=== PATIENT | female | born 1990 | race Caucasian/White ===

== ENCOUNTER 2022-12-14 09:32 | Emergency (ER) | payer MEDICAID ==
[~2022-12-14] VITALS: Ht 162.6 cm; Wt 77.3 kg
[~2022-12-14 09:32] MED LIST: BENADRYL25 M2 PO; MEDROL 4MG DOSPA4 MG PO; MOTRIN 600600 MG/TAB PO; NO HOME MEDICATIONS; PERCOCET 325 MG1 TA2 PO; PRENATAL1 TA7 PO; RAYOS1 MG
[2022-12-14 09:44] VITALS: TEMP 97.4
[2022-12-14] MEDS ORDERED: Promethazine 25 MG in NS 50 ML IV ONE (10:00)
[2022-12-14] MEDS ORDERED: NS 1,000 ML IV ONE (10:00)
[2022-12-14 10:29] LABS: BASO # 0.1 K/mm3 (0.0-0.2); BASO % 0.3 % (0.0-2.0); EOS # 0.3 K/mm3 (0.0-0.7); EOS % 1.5 % (0.0-4.0); GRAN % 82.1 % (42.2-75.2); HEMATOCRIT 45.1 % (37.0-47.0); HEMOGLOBIN 15.7 g/dl (12.5-16.0); LYMPH # 1.7 K/mm3 (1.2-3.4); MEAN CELL VOLUME 91 fl (80.0-100.0); MEAN CORPUSCULAR HEMOGLOBIN 32 pg (27-31); MEAN CORPUSCULAR HGB CONC 35 g/dl (33.0-37.0); MEAN PLATELET VOLUME 11.7 fl (7.4-10.4); MONO % 5.6 % (1.7-9.3); PLATELET COUNT 249 K/mm3 (130-400); RED BLOOD COUNT 4.98 M/mm3 (4.10-5.30); REDCELL DISTRIBUTION WIDTH-CV 12.3 % (11.5-14.5)
[2022-12-14 10:48] LABS: ALBUMIN 4.6 gm/dL (3.5-5.0); BILIRUBIN,TOTAL 0.4 mg/dL (0.2-1.2); CALCIUM 10.2 mg/dL (8.4-10.2); CREATININE, serum 0.93 mg/dL (0.57-1.11); POTASSIUM 3.5 mmol/L (3.5-4.5); TOTAL PROTEIN 7.4 gm/dL (6.2-8.1)
[2022-12-14] MEDS ORDERED: Ondansetron 4 MG/2 ML VIAL IV ONE (11:15)
[2022-12-14] MEDS ORDERED: Iohexol 300 - 100 ML VIAL IV ONE (12:10)
[2022-12-14] MEDS ORDERED: NS 100 ML IV SCH (12:11)
[2022-12-14] MEDS ORDERED: ZOFRAN ODT4 MG PO (13:10)
[2022-12-14 13:38] VITALS: BP 126/70; PULSE 86
== END 2022-12-14 13:38 | disposition home or self-care (01) ==
LOC: COL.ER 09:32
PROVIDERS: Physician Assistant
DX: R11.2 Nausea with vomiting, unspecified (principal); R10.84 Generalized abdominal pain; D72.829 Elevated white blood cell count, unspecified; F17.210 Nicotine dependence, cigarettes, uncomplicated; Z28.311 Partially vaccinated for COVID-19
CPT/HCPCS: J2405; J2550; J7030; Q9967